=== PATIENT | female | born 1995 | race Caucasian/White ===

== ENCOUNTER 2021-12-21 08:37 | Emergency (ER) | payer BC, OTHER ==
[2021-12-21] MEDS ORDERED: Metoclopramide HCl 10 MG/2 ML VIAL ONE (09:14)
[2021-12-21] MEDS ORDERED: diphenhydrAMINE 50 MG/ML VIAL ONE (09:14)
== END 2021-12-21 11:03 | disposition home or self-care (01) ==
LOC: CSHERS 08:37
DX: G43.909 Migraine, unspecified, not intractable, without status migrainosus (principal)
CPT/HCPCS: 96365; 96375; J1200; J2765